=== PATIENT | male | born 1960 | race African-American/Black ===

== ENCOUNTER 2020-04-23 19:00 | Emergency (ER) | payer OTHER ==
[~2020-04-23] VITALS: Ht 177.8 cm; Wt 84.0 kg
[2020-04-23 19:04] VITALS: BP 155/97
[2020-04-23] MEDS ORDERED: LEVOFLOXACIN 250MG TABLET PO ONE (21:30)
[2020-04-23] MEDS ORDERED: LIDOCAINE HCL 1% 20ML VIAL (Pyxis) INJ INFIL ONE (21:30)
[2020-04-23] MEDS ORDERED: CEFTRIAXONE SODIUM 250 MG/VIAL IM ONE (21:30)
[2020-04-23 21:55] LABS: CLARITY URINE CLEAR (CLEAR); COLOR URINE YELLOW (YELLOW); KETONES URINE NEGATIVE (NEGATIVE); LEUKOCYTE ESTERASE URINE NEGATIVE (NEGATIVE); NITRITE URINE NEGATIVE (NEGATIVE); OCCULT BLOOD URINE NEGATIVE (NEGATIVE); PH URINE 5.5 (4.5-8.0); PROTEIN URINE 1+ (NEGATIVE); SPECIFIC GRAVITY URINE 1.027 (1.005-1.030)
[2020-04-26 04:07] LABS: NEISSERIA GONORRHOEAE NAA Negative (Negative)
== END 2020-04-23 22:20 | disposition home or self-care (01) ==
LOC: ER 19:00
DX: N34.2 Other urethritis (principal); N41.9 Inflammatory disease of prostate, unspecified; R03.0 Elevated blood-pressure reading, without diagnosis of hypertension
CPT/HCPCS: 81003; 87086; 87491; 87591; 96372; 99283; J0696; J3490